=== PATIENT | male | born 1980 | race Caucasian/White ===

== ENCOUNTER 2016-08-28 11:31 | Emergency (ER) | payer SELFPAY ==
--- NOTE | 2016-09-03 15:34 | ER ---
ADMIT: 08/28/2016 RM/LOC: ER [facility] MR#: [id number] [address] [facility] [id number] [address] [place] [address] Emergency Room Report SEX: M AGE: 36 : 1980 DATE: 08/28/2016 HISTORY OF PRESENT ILLNESS: A 36-year-old white male coming in with, could be a small pilonidal abscess or just a cellular abscess, it is right at the gluteal cleft. This was I and D'd under local anesthetic culture and packed and given Parrott 5/325 #20. Follow up with Dr. Samuel. Keflex 500 two p.o. b.i.d. x10 days. CONDITION ON DISCHARGE: Good. Stuart Samuel MD/ escobar JOB #: [id number] CC: Stuart Samuel MD, Attending Physician Paola Leblanc MD, Family Physician
== END 2016-08-28 12:45 | disposition home or self-care (01) ==
LOC: ER 11:31
DX: L02.31 Cutaneous abscess of buttock (principal); F17.210 Nicotine dependence, cigarettes, uncomplicated; Z88.0 Allergy status to penicillin